=== PATIENT | female | born 1990 | race Caucasian/White ===

== ENCOUNTER 2018-02-03 08:22 | Emergency (ER) | payer OTHER ==
[~2018-02-03] VITALS: Ht 154.9 cm; Wt 75.3 kg
[~2018-02-03 08:22] MED LIST: INTESTINEX1 CAP PO; MUCINEX1200 MG/BO PO; PRENATAL CAPLE1 EACH PO; PRENATAL TABLE1 EAC1 PO
[2018-02-03] MEDS ORDERED: IBUPROFEN800 MG PO (09:38)
[2018-02-03] MEDS ORDERED: CYCLOBENZAPRINE10 MG PO (09:38)
== END 2018-02-03 10:24 | disposition home or self-care (01) ==
LOC: ER 08:22
DX: M25.512 Pain in left shoulder (principal); M25.511 Pain in right shoulder

== ENCOUNTER 2021-02-28 10:29 | Emergency (ER) | payer OTHER ==
[~2021-02-28] VITALS: Ht 154.9 cm; Wt 77.6 kg
[~2021-02-28 10:29] MED LIST changes: +CYCLOBENZAPRINE10 MG PO; +IBUPROFEN800 MG PO
[2021-02-28] MEDS ORDERED: AVIANE-28 TABL1 EACH PO (10:38)
== END 2021-02-28 13:44 | disposition home or self-care (01) ==
LOC: ER 10:29
DX: M54.59 Other low back pain (principal)

== ENCOUNTER → 2021-03-26 | Outpatient (CLI) | payer OTHER ==
[~2021-03-26] MED LIST changes: +AVIANE-28 TABL1 EACH PO
== END | disposition home or self-care (01) ==
LOC: MRI 08:22
PROVIDERS: ATTEND General Practice
DX: M54.59 Other low back pain (principal)
CPT/HCPCS: 72148

== ENCOUNTER 2022-01-22 10:48 | Emergency (ER) | payer OTHER ==
[~2022-01-22] VITALS: Ht 154.9 cm; Wt 76.2 kg
[2022-01-22] MEDS ORDERED: ACID REDUCER20 M1 PO (12:32)
== END 2022-01-22 14:32 | disposition home or self-care (01) ==
LOC: ER 10:48
DX: K29.70 Gastritis, unspecified, without bleeding (principal)